=== PATIENT | male | born 1950 | race Caucasian/White ===

== ENCOUNTER 2019-01-23 14:11 | Outpatient (CLI) | payer MEDICARE, OTHER | END 2019-01-23 15:02 | disposition home or self-care (01) | LOC: RAD 14:11 | PROVIDERS: ATTEND Otolaryngology Otolaryngology/Facial Plastic Surgery | DX: G47.33 Obstructive sleep apnea (adult) (pediatric) (principal); I10 Essential (primary) hypertension; Z86.73 Personal history of transient ischemic attack (TIA), and cerebral infarction without residual deficits ==

== ENCOUNTER → 2021-02-28 | Outpatient (CLI) | payer MEDICARE, OTHER ==
--- NOTE | 2021-02-28 13:25 | Diagnostic Imaging Report ---
PROCEDURE: CT abdomen and pelvis without contrast. TECHNIQUE: Multiple contiguous axial images were obtained through the abdomen and pelvis without the use of intravenous contrast. Auto Exposure Controls were utilized during the CT exam to meet ALARA standards for radiation dose reduction. INDICATION: Newly diagnosed prostate carcinoma. Correlation is made with prior CT from 03/31/2013. The lung bases are clear. The liver and gallbladder are unremarkable. There is no biliary ductal dilatation. Pancreas and spleen are unremarkable. No adrenal mass is identified. Tiny nonobstructing calculus in the right kidney is noted. No ureteral calculi or hydronephrosis is identified. Aorta is nonaneurysmal. No central retroperitoneal or mesenteric lymphadenopathy is detected. The small and large bowel loops are normal caliber. There is no obstruction. No free fluid or fluid collection is seen. There is extensive diverticulosis of the sigmoid colon but no evidence of acute diverticulitis. The bladder is unremarkable. Prostate contains central calcifications. No definite pelvic lymphadenopathy is identified. There is a fat-containing left inguinal hernia. No definite osteoblastic or osteolytic lesions are seen. IMPRESSION: 1. Nonobstructing right-sided nephrolithiasis. No ureteral calculi or hydronephrosis is identified. 2. Uncomplicated diverticulosis. 3. No evidence of abdominal or pelvic lymphadenopathy. 4. Fat-containing left inguinal hernia. Dictated by: Dictated on workstation # [id number]
--- NOTE | 2021-02-28 15:35 | Diagnostic Imaging Report ---
INDICATION: Prostate cancer. The patient was administered 25.2 mCi technetium 99m MDP intravenously and whole-body imaging was performed after a three-hour delay. No prior bone scans are available for comparison. There is normal uptake of activity by the axial and appendicular skeleton. There is uptake by both kidneys with excretion into the urinary bladder. There is degenerative uptake in the medial left knee. No suspicious foci are identified to suggest osseous metastatic disease. IMPRESSION: No scintigraphic evidence of osseous metastatic disease. Dictated by: Dictated on workstation # [id number]
== END ==
LOC: CARD 12:00
PROVIDERS: ATTEND Urology
DX: C61 Malignant neoplasm of prostate (principal); N20.0 Calculus of kidney; K57.30 Diverticulosis of large intestine without perforation or abscess without bleeding; K40.90 Unilateral inguinal hernia, without obstruction or gangrene, not specified as recurrent
CPT/HCPCS: 74176; 78306; A9503